=== PATIENT | male | born 1950 | race Caucasian/White ===

== ENCOUNTER 2022-07-11 12:24 | Outpatient (CLI) | payer OTHER ==
[~2022-07-11 12:24] MED LIST: Iopamidol 300 61% 100 ML VIAL FS ONE
== END 2022-07-11 12:25 | disposition home or self-care (01) ==
LOC: CSHCT 12:24
PROVIDERS: ATTEND Urology
DX: C61 Malignant neoplasm of prostate (principal); I71.43 Infrarenal abdominal aortic aneurysm, without rupture; N28.1 Cyst of kidney, acquired; D73.4 Cyst of spleen; E27.8 Other specified disorders of adrenal gland; N40.0 Benign prostatic hyperplasia without lower urinary tract symptoms
CPT/HCPCS: 72197; 74178; 82565; Q9967